=== PATIENT | female | born 1940 | race Caucasian/White ===

== ENCOUNTER 2017-03-27 16:40 | Inpatient (IN) | payer OTHER ==
[~2017-03-27] VITALS: Ht 172.7 cm; Wt 82.4 kg
[~2017-03-27 16:40] MED LIST: ALLOPURINOL100 MG PO; ATIVAN PO; Ativan PO; BUMETANIDE2 MG PO; BUTRANS1 EACH TD; CARDIZEM30 MG PO; CELEBREX200 MG PO; COLCRYS0.6 MG PO; COUMADIN,JANTOVE5 MG PO; COUMADIN2 MG PO; COUMADIN5 MG PO; CYANOCOBALAM1000 MCG PO; Colchicine,Colcrys PO; Coumadin,Jantoven PO; FUROSEMIDE40 MG PO; HYDROCODON-ACE1 EAC7 PO; K-DUR10 MEQ PO; KEFLEX500 MG PO; LISINOPRIL20 MG PO; LOPRESSOR50 MG PO; Lopressor PO; MEDROL DOSEPAK4 MG PO; MELOXICAM7.5 MG PO; PERCOCET 5/31 TABLET PO; PREVACID15 MG PO; PROMETHAZINE12.5 M1 PO; PROTONIX PO; Phenergan PO; SERTRALINE HCL25 MG PO; SERTRALINE HCL50 MG PO; TRAMADOL HCL50 MG PO; TRAZADONE PO; TRAZODONE HCL150 MG PO; TYLENOL REGULA325 MG PO; ULTRAM ER100 MG PO; ULTRAM50 MG PO; VOLTAREN75 MG PO; Voltaren PO; WARFARIN SODIUM4 MG PO; XARELTO20 MG PO; Xanax PO; ZESTRIL,PRINIVIL5 MG PO; ZOLOFT50 MG; ZYLOPRIM100 MG PO; Zestril,Prinivil PO; Zoloft PO; Zyloprim PO
[2017-03-27 17:32] LABS: HEMATOCRIT 39.4 % (36.0-46.0); HEMOGLOBIN 13.6 G/DL (11.9-15.5); MCH 31.1 PG (29.0-34.0); MCHC 34.5 G/DL (30.0-36.0); MCV 90.2 FL (83-99); PLATELET COUNT 122 K/uL (156-360); RBC DIS.WIDTH-CV 13.2 % (11.8-14.6); RBC DIS.WIDTH-SD 43.9 % (39-53); RED BLOOD COUNT 4.37 M/uL (3.80-5.20); WHITE BLOOD COUNT 9.5 K/uL (4.1-10.2)
[2017-03-27 17:41] LABS: CHLORIDE 104 mEq/L (99-109); POTASSIUM 3.5 mEq/L (3.7-5.4); SODIUM 135 mEq/L (136-147)
[2017-03-27 17:43] LABS: GLUCOSE 106 mg/dL (70-99)
[2017-03-27 17:47] LABS: CREATININE 0.8 mg/dL (0.6-1.3); GFR ESTIMATE (CALCULATED) > 59 mL/min/
[2017-03-27 17:48] LABS: UREA NITROGEN (BUN) 14 mg/dL (9-23)
[2017-03-27 18:49] LABS: APPEARANCE CLOUDY ((CLEAR)); BILIRUBIN NEGATIVE; BLOOD LARGE; COLOR AMBER ((YELLOW)); GLUCOSE (STRIP) NEGATIVE; KETONES NEGATIVE; LEUKOCYTES LARGE; NITRITE NEGATIVE; PROTEIN (STRIP) 100; SPECIFIC GRAVITY 1.023 (1.000-1.030)
[2017-03-27 19:01] LABS: BACTERIA RARE /HPF; EPITHELIAL CELLS 1+ /HPF; MUCUS TRACE /LPF; RED BLOOD CELLS 40-50 /HPF (0-5); UCUL ADDED? YES; WHITE BLOOD CELLS TNTC /HPF (0-5)
[2017-03-27] MEDS ORDERED: XARELTO20 MG PO (23:24)
[2017-03-27] MEDS ORDERED: CYANOCOBALAM1000 MCG PO (23:25)
[2017-03-27] MEDS ORDERED: CELEBREX200 MG PO (23:26)
[2017-03-27] MEDS ORDERED: ALLOPURINOL100 MG PO ×2 (23:26)
[2017-03-27] MEDS ORDERED: CALTRATE 600 +1 EAC1 PO (23:27)
[2017-03-27] MEDS ORDERED: CLONAZEPAM0.5 MG PO (23:27)
[2017-03-27] MEDS ORDERED: MIRALAX17 GM PO (23:27)
[2017-03-27] MEDS ORDERED: LOPRESSOR50 MG PO (23:27)
[2017-03-28 00:57] VITALS: BP 160/83
[2017-03-28 03:48] VITALS: BP 139/66
[2017-03-28 06:02] LABS: BASOPHIL (%) 0.4 % (0-1); EOSINOPHIL (%) 1.8 % (0-5); EOSINOPHIL COUNT 0.1 K/uL (0-0.3); HEMATOCRIT 35.4 % (36.0-46.0); IMMATURE GRANULOCYTE (%) 0.7 % (0.0-0.7); LYMPHOCYTE (%) 25.5 % (15-42); LYMPHOCYTE COUNT 1.9 K/uL (1.0-2.8); MCHC 32.5 G/DL (30.0-36.0); MCV 92.4 FL (83-99); MONOCYTE (%) 11.8 % (3-12); MONOCYTE COUNT 0.9 K/uL (0-0.8); NEUTROPHIL (%) 59.8 % (45-76); NEUTROPHIL COUNT 4.4 K/uL (1.8-6.4); PLATELET COUNT 102 K/uL (156-360); RBC DIS.WIDTH-CV 13.6 % (11.8-14.6); RBC DIS.WIDTH-SD 45.8 % (39-53); RED BLOOD COUNT 3.83 M/uL (3.80-5.20); WHITE BLOOD COUNT 7.4 K/uL (4.1-10.2)
[2017-03-28 06:03] LABS: HEMOGLOBIN 11.5 G/DL (11.9-15.5)
[2017-03-28 06:23] LABS: CHLORIDE 108 MEQ/L (99-109); CREATININE 0.7 MG/DL (0.6-1.3); GFR ESTIMATE (CALCULATED) > 59 mL/min/; GLUCOSE 86 mg/dL (70-99); POTASSIUM 3.7 MEQ/L (3.7-5.4); SODIUM 143 MEQ/L (136-147); UREA NITROGEN (BUN) 9 mg/dL (9-23)
[2017-03-28 07:34] VITALS: BP 175/74
[2017-03-28 11:21] VITALS: BP 155/71
[2017-03-28 15:20] VITALS: BP 140/62
[2017-03-29 08:01] VITALS: BP 172/84
[2017-03-29 08:05] VITALS: BP 204/82
[2017-03-29 09:40] VITALS: BP 146/70
[2017-03-29 16:17] VITALS: BP 189/85
[2017-03-29 19:06] VITALS: BP 162/82
[2017-03-30] VITALS: BP 180/94
[2017-03-30 01:00] VITALS: BP 162/84
[2017-03-30] MEDS ORDERED: BACTRIM,SEPT1 TABLET PO (09:24)
[2017-03-30 09:26] VITALS: BP 168/78
[2017-03-30 13:25] LABS: CREATININE 0.6 MG/DL (0.6-1.3); GFR ESTIMATE (CALCULATED) > 59 mL/min/
== END 2017-03-30 13:07 | disposition home or self-care (01) | DRG 982 ==
LOC: EME 16:40 → 3EAST 23:29 → EDOF 23:29 → ENRESERV 23:31 → CANRESERV 23:31 → ENRESERV 23:42 → 3EAST 03-28 00:47
PROVIDERS: Physician Assistant; Student in an Organized Health Care Education/Training Program
PROC: 0D9Q00Z Drainage of Anus with Drainage Device, Open Approach (ICD-10-PCS; principal; 2017-03-28)
DX: N39.0 Urinary tract infection, site not specified (principal); K61.2 Anorectal abscess; E11.9 Type 2 diabetes mellitus without complications; M06.9 Rheumatoid arthritis, unspecified; M10.9 Gout, unspecified; I10 Essential (primary) hypertension; D68.51 Activated protein C resistance; Z91.09 Other allergy status, other than to drugs and biological substances; Z79.01 Long term (current) use of anticoagulants; Z79.899 Other long term (current) drug therapy; Z88.5 Allergy status to narcotic agent; Z85.828 Personal history of other malignant neoplasm of skin; Z22.322 Carrier or suspected carrier of Methicillin resistant Staphylococcus aureus
CPT/HCPCS: 71046; 74177; 80048; 81003; 82565; 83605; 85025; 85027; 87040; 87070; 87075; 87077; 87086; 87147; 87186; 87205; 87502; 99281; 99285; G0378; J0295; J2405; J3010; J3370; J7030; J7050; J7120

== ENCOUNTER 2017-06-25 08:39 | Day surgery (SDC) | payer OTHER ==
[~2017-06-25] VITALS: Ht 160 cm; Wt 64.4 kg
[~2017-06-25 08:39] MED LIST changes: +BACTRIM,SEPT1 TABLET PO; +CALTRATE 600 +1 EAC1 PO; +CLONAZEPAM0.5 MG PO; +MIRALAX17 GM PO; +NEXIUM20 MG PO; +PRINIVIL20 MG PO
[2017-06-25 09:26] VITALS: BP 190/86
[2017-06-25 11:04] LABS: APPEARANCE CLOUDY ((CLEAR)); BILIRUBIN NEGATIVE; BLOOD NEGATIVE; COLOR AMBER ((YELLOW)); GLUCOSE (STRIP) NEGATIVE; KETONES NEGATIVE; LEUKOCYTES LARGE; NITRITE NEGATIVE; PROTEIN (STRIP) 30; SPECIFIC GRAVITY 1.023 (1.000-1.030)
[2017-06-25 11:16] LABS: EPITHELIAL CELLS 3+ /HPF; RED BLOOD CELLS 0-5 /HPF (0-5); WHITE BLOOD CELLS 15-20 /HPF (0-5)
[2017-06-25 11:17] LABS: BACTERIA 2+ /HPF; MUCUS RARE /LPF
[2017-06-25 15:25] VITALS: BP 170/68
[2017-06-25 16:33] VITALS: BP 170/68
[2017-06-25 16:35] VITALS: BP 170/68
== END 2017-06-25 16:38 | disposition home or self-care (01) ==
LOC: SDC 08:39
PROVIDERS: Student in an Organized Health Care Education/Training Program
PROC: 0DJD8ZZ Inspection of Lower Intestinal Tract, Via Natural or Artificial Opening Endoscopic (ICD-10-PCS; principal; 2017-06-25)
DX: K61.0 Anal abscess (principal); K64.4 Residual hemorrhoidal skin tags; K57.30 Diverticulosis of large intestine without perforation or abscess without bleeding; D68.51 Activated protein C resistance; K21.9 Gastro-esophageal reflux disease without esophagitis; E78.5 Hyperlipidemia, unspecified; E21.3 Hyperparathyroidism, unspecified; Z96.652 Presence of left artificial knee joint; Z90.710 Acquired absence of both cervix and uterus; Z90.79 Acquired absence of other genital organ(s); Z90.722 Acquired absence of ovaries, bilateral; Z87.891 Personal history of nicotine dependence; Z88.5 Allergy status to narcotic agent
CPT/HCPCS: 80048; 81003; 85027; 87641; J0360; J2405; S0020